=== PATIENT | female | born 1955 | race Caucasian/White ===

== ENCOUNTER 2018-12-16 01:44 | Emergency (ER) | payer OTHER ==
[~2018-12-16] VITALS: Ht 167.6 cm; Wt 68.0 kg
--- OUTSIDE RECORDS SUMMARY | ~2018-12-16 | XMS | Encounter Summary ---
Demographics + + + | Address | [address] | | | [place] [address] | + + + | Home Phone | | + + + | Preferred Language | Unknown | + + + | Marital Status | Unknown | + + + | Confucianist Affiliation | Unknown | + + + | Race | Unknown | + + + | Ethnic Group | Unknown | + + + Author + + + | Author | [facility] | + + + | Organization | [facility] | + + + | Address | Unknown | + + + | Phone | Unavailable | + + + Support + + +---------+ + | Name | Relationship | Address | Phone | + + +---------+ + | Charles Hart | ECON | Unknown | | + + +---------+ + Care Team Providers + +------+ + | Care Nuclear Unit Operator Name | Role | Phone | + +------+ + | Helena Hutton PA-C | PCP | | + +------+ + Encounter Details +--------+---------+ + + + | Date | Type | Department | Care Team | Description | +--------+---------+ + + + | 09/20/ | Office | [facility] | Tomás Hoff MD | Mild persistent | | 2019 | Visit | Pulmonology [address] | asthma without | | | | [address] | [place] [address] | complication | | | | [place], [place] | [phone] | (Primary Dx) | | | | [address] | | | | | | [phone] | | | +--------+---------+ + + + Social History + +-------+ +--------+------+ | Tobacco Use | Types | Packs/Day | Years | Date | | | | | Used | | + +-------+ +--------+------+ | Never Smoker | | | | | + +-------+ +--------+------+ + +---+---+---+ | Smokeless Tobacco: | | | | | Never Used | | | | + +---+---+---+ + + +---------+ + | Alcohol Use | Drinks/We | oz/Week | Comments | | | ek | | | + + +---------+ + | No | | | | + + +---------+ + + + + | Sex Assigned at | Date Recorded | | | | + + + | Not on file | | + + + as of this encounter Last Filed Vital Signs + + + + | Vital Sign | Reading | Time Taken | + + + + | Blood Pressure | 126/67 | 09/20/2018 10:54 AM PST | + + + + | Pulse | 57 | 09/20/2018 10:54 AM PST | + + + + | Temperature | 35.9 C (96.6 F) | 09/20/2018 10:54 AM PST | + + + + | Respiratory Rate | - | - | + + + + | Oxygen Saturation | 100% | 09/20/2018 10:54 AM PST | + + + + | Inhaled Oxygen | - | - | | Concentration | | | + + + + | Weight | 68.9 kg (152 lb) | 09/20/2018 10:54 AM PST | + + + + | Height | 170.2 cm (5' 7") | 09/20/2018 10:54 AM PST | + + + + | Body Mass Index | 23.81 | 09/20/2018 10:54 AM PST | + + + + in this encounter Progress Notes Tomás Hoff MD - 09/20/2018 11:00 AM PSTFormatting of this note may be different from jill beebe. Subjective: Patient ID: Ragini Hart is a 62 y.o. female is here for evaluation of asthma . HPI The following portions of the patient's history were reviewed and updated as appropriate: a llergies, current medications, past family history, past medical history, past social histor y, past surgical history and problem list. 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 She use s albuterol very rarely. She has been tested for allergens but the place where she lives in [place] she denies any significant allergies. She does get some hoarseness of voice at t he end of the day after working in the hair salon. She travels a lot to [place] and every time she travels to [place] she develops an exa cerbation. She has never been intubated but has had at least 4 episodes of exacerbation wilfrid ated with prednisone. She has never been intubated. Once exacerbation is over her requirem ent of albuterol decreases significantly. She was recently started on Singulair which has l ed to decreasing the frequency of exacerbations but she also believes this could be as a res ult of decreased amount of travel . She is a lifetime nonsmoker 09/2016 The patient is stable since her last visit. She has been compliant with the use of Singula ir. Her use of albuterol is minimal. 01/09/2017 The patient went to [facility] and as usual had an exacerbation. This time she had the pres criptions of the prednisone and she took them . Unfortunately she did not call our office an d self stopped in a week. Other than that he symptoms have been well controlled. She has bee n using singulair and zyrtec for allergies. She has been using her omerprazole with a good c ompliance. 04/10/2017 The patient has visited [place] since the last visit and had no exacerbation. She is onl y using his Singulair now. She has stopped using Advair. She denies any exacerbation. 02/05/2018 The patient has had 2 exacerbations in the last visit. Both of them were during her visit to [place]. Both of them were short and treated with prednisone. She has been compliant with the use of cetirizine and Singulair. 07/06/2018 The patient says that her symptoms were very well controlled until May when they had some construction going in their house.she started having worsening shortness of breath. She started using her albuterol more frequently and decided to use prednisone which she was giv en for emergency purposes. She never contacted our office. After 10 days of treatment she fe lt better . She developed similar symptoms and she started using prednisone again and contin ued till few days ago. She called our office for a refill of prednisone and I advised her to come in for evaluation. She says that although she had some shortness of breath and wheezin g it was never severe enough that she had to go to the hospital and prednisone controlled it well. INTERIM HISTORY 09/20/2018 The patient has been feeling much better with inhaled fluticasone. The construction in her house is finished. She has not needed any steroid treatment in the interim Review of Systems Constitutional: Negative. HENT: Negative. Eyes: Negative. Respiratory: Negative. Cardiovascular: Negative. Gastrointestinal: History of GERD on omeprazole and lifestyle modification Endocrine: Negative. Genitourinary: Negative. Musculoskeletal: Negative. Allergic/Immunologic: Negative. Neurological: Negative. Hematological: Negative. Psychiatric/Behavioral: Negative. History: Past Medical History Diagnosis Date Anemia Bronchitis, chronic (HCC) Cancer (HCC) Mild intermittent asthma without complication 09/08/2016 Pneumonia Past Surgical History Procedure Laterality Date SECTION HYSTERECTOMY Social History Main Topics Smoking status: Never Smoker Smokeless tobacco: None Alcohol Use: No Drug Use: No Sexual Activity: Not Asked History reviewed. No pertinent family history. Allergies: Allergies Allergen Reactions Codeine Other (See Comments) Pneumococcal Polysaccharide Vaccine Other (See Comments) Reaction unknown Sudafed [Pseudoephedrine] Other (See Comments) Unknown 30 years ago Morphine GI Distress Current Medications: Current Outpatient Prescriptions on File Prior to Visit Medication Sig Dispense Refill albuterol (PROVENTIL HFA;VENTOLIN HFA) 108 (90 Base) MCG/ACT inhaler Inhale 2 puffs int o the lungs as needed. 1 Inhaler 11 Calcium Carb-Cholecalciferol (CALCIUM-VITAMIN D) 600-400 MG-UNIT TABS Take 1 tablet by mouth daily. cetirizine (ZYRTEC) 10 MG tablet Take 10 mg by mouth daily. Cholecalciferol 5000 UNITS capsule Take 5,000 Units by mouth daily. estradiol (CLIMARA) 0.025 MG/24HR Place 1 patch onto the skin once a week. estrogens, conjugated, (PREMARIN) 0.[address] 0.625 mg vaginally twice a week . ipratropium-albuterol (DUO-NEB) 0.5-2.5 mg/3mL Take 3 mLs by nebulization as needed. 36 0 mL 11 montelukast (SINGULAIR) 10 MG tablet Take 1 tablet by mouth daily. 30 tablet 11 Forgan-3 Fatty Acids (SALMON OIL) 200 MG CAPS Take 1,000 mg by mouth 2 (two) times daily . omeprazole (PRILOSEC) 20 MG capsule Take 20 mg by mouth daily. traZODone (DESYREL) 150 MG tablet Take 75 mg by mouth nightly. [DISCONTINUED] Fluticasone Furoate (ARNUITY ELLIPTA) 200 MCG/ACT AEPB Inhale 1 puff int o the lungs daily. 30 each 11 No current facility-administered medications on file prior to visit. Objective: Physical Exam Vitals: 09/20/18 1054 BP: 126/67 Pulse: 57 Temp: 96.6 F (35.9 C) SpO2: 100% Vital signs reviewed. GENERAL: pleasant, cooperative, oriented, not in distress HEENT: pink conjunctiva, anicteric sclerae, moist oral mucosae and without any lesions, nor mal appearing nasal mucosae; no JVD; MALAMPATTI _2__; no thyromegaly; no cervicolymphadenopa neena CVS: PMI non displaced, NRRR, S1 and S2, no murmurs/gallops/rubs CHEST: Examination of the chest was unremarkable. There were no bony deformities, no asymme try, and no other abnormalities. LUNGS: Normal effort, Equal in expansion, resonant to percussion, clear and equal breath so unds, no wheezes/rales/rhonchi ABDOMEN: Flat abdomen, NABS, non-tender on palpation, Traube's space intact, liver span nor mal, no masses palpated EXTREMITIES: good distal pulses, no cyanosis, no edema, no clubbing, no nail abnormalities NEURO: awake and oriented, gait normal, no focal neurologic deficits Pulmonary function test 2014 FEV1/FVC 77 FEV1 2.76/105 FVC 3.6/107 Lung volumes TLC 5.94/111 RV/TLC 37 Diffusing capacity is 18.5/71 Impression normal pulmonary function test Pulmonary function test 08/01/2016 SPIROMETRY: 1. FEV-1/FVC is 0.78. 2. FEV-1 is 2.88L/105%. 3. FVC is 3.67L/104%. 4.There is no significant bronchodilator response. LUNG VOLUMES: 1. TLC is 5.31L/99%. 2. RV/TLC is 0.27. DIFFUSING CAPACITY: 1. Diffusing capacity is 80%. 2. DLCO/VA is 63%. INTERPRETATION: FEV1/FVC ratio, FEV1, and FVC are all within normal limits. There is no significant obstr uctive impairment. There is no significant bronchodilator response. Total lung capacit y is within normal limits. There is no significant restrictive impairment. Diffusing cap acity is within normal limits. Overall, this is a normal PFT. Assessment and Plan: 1. Mild persistent asthma without complication The patient is feeling much better. I will decrease the arnuity ellipta 100mcg 1 puff daily She will use albnuterol as needed. She will continue using his Singulair 10 mg daily. She will continue to use albuterol as needed. Thank you for allowing me to participate in your patient's care. We will review test result s that we have ordered with the patient once they become available. A return visit has been scheduled in 4 months. Tomás Hoff MD Pulmonary and Critical Care Medicine [address] , [place] [address] in this encounter Plan of Treatment +--------+---------+ + + + | Date | Type | Specialty | Care Team | Description | +--------+---------+ + + + | 12/27/ | Office | Pulmonology | Tomás Hoff MD | | | 2018 | Visit | | [address] | | | | | | [place] [address] | | | | | | [phone] | | | | | | | | +--------+---------+ + + + as of this encounter Visit Diagnoses + + | Diagnosis | + + | Mild persistent asthma without complication - Primary | + + | Unspecified asthma | + +
--- OUTSIDE RECORDS SUMMARY | ~2018-12-16 | XMS | Clinical Summary ---
Demographics + + + | Address | [address] | | | [place] [address] | + + + | Home Phone | | + + + | Preferred Language | Unknown | + + + | Marital Status | Unknown | + + + | Yarsanism Affiliation | Unknown | + + + | Race | Unknown | + + + | Ethnic Group | Unknown | + + + Author + + + | Author | [facility] | + + + | Organization | [facility] | + + + | Address | Unknown | + + + | Phone | Unavailable | + + + Support + + +---------+ + | Name | Relationship | Address | Phone | + + +---------+ + | Charles Hart | ECON | Unknown | | + + +---------+ + Care Team Providers + +------+ + | Care Supervisor [employer] Name | Role | Phone | + +------+ + | Helena Hutton PA-C | PP | | + +------+ + Allergies + + + + + + | Active Allergy | Reactions | Severity | Noted | Comments | | | | | Date | | + + + + + + | Codeine | Other (See Comments) | Medium | | | + + + + + + | Morphine | GI Distress | Low | 06/30/20 | | | | | | 16 | | + + + + + + | Pneumococcal | Other (See Comments) | Medium | 08/03/20 | Reaction unknown | | Polysaccharide | | | 15 | | | Vaccine | | | | | + + + + + + | Pseudoephedrine | Other (See Comments) | Medium | 06/30/20 | Unknown 30 years | | | | | 16 | ago | + + + + + + Current Medications + + + +---------+------+------+-------+ | Prescription | Sig. | Disp. | Refills | Star | End | Statu | | | | | | t | Date | s | | | | | | Date | | | + + + +---------+------+------+-------+ | Calcium | Take 1 tablet by | | | | | Activ | | Carb-Cholecalciferol | mouth daily. | | | | | e | | (CALCIUM-VITAMIN D) | | | | | | | | 600-400 MG-UNIT | | | | | | | | TABS | | | | | | | + + + +---------+------+------+-------+ | cetirizine | Take 10 mg by mouth | | | | | Activ | | (ZYRTEC) 10 MG | daily. | | | | | e | | tablet | | | | | | | + + + +---------+------+------+-------+ | Cholecalciferol | Take 5,000 Units by | | | | | Activ | | 5000 UNITS capsule | mouth daily. | | | | | e | + + + +---------+------+------+-------+ | estradiol | Place 1 patch onto | | | | | Activ | | (CLIMARA) 0.025 | the skin once a | | | | | e | | MG/24HR | week. | | | | | | + + + +---------+------+------+-------+ | estrogens, | Place 0.625 mg | | | | | Activ | | conjugated, | vaginally twice a | | | | | e | | (PREMARIN) 0.625 MG | week. | | | | | | | tablet | | | | | | | + + + +---------+------+------+-------+ | Fowler-3 Fatty | Take 1,000 mg by | | | | | Activ | | Acids (SALMON OIL) | mouth 2 (two) times | | | | | e | | 200 MG CAPS | daily. | | | | | | + + + +---------+------+------+-------+ | omeprazole | Take 20 mg by mouth | | | | | Activ | | (PRILOSEC) 20 MG | daily. | | | | | e | | capsule | | | | | | | + + + +---------+------+------+-------+ | traZODone | Take 75 mg by mouth | | | | | Activ | | (DESYREL) 150 MG | nightly. | | | | | e | | tablet | | | | | | | + + + +---------+------+------+-------+ | montelukast | Take 1 tablet by | 30 | 11 | 08/0 | | Activ | | (SINGULAIR) 10 MG | mouth daily. | tablet | | /20 | | e | | tablet | | | | 17 | | | + + + +---------+------+------+-------+ | albuterol | Inhale 2 puffs into | 1 | 11 | 01/0 | | Activ | | (PROVENTIL | the lungs as needed. | Inhaler | | 3/20 | | e | | HFA;VENTOLIN HFA) | | | | 18 | | | | 108 (90 Base) | | | | | | | | MCG/ACT | | | | | | | | inhalerIndications: | | | | | | | | Mild intermittent | | | | | | | | asthma without | | | | | | | | complication | | | | | | | + + + +---------+------+------+-------+ | | Take 3 mLs by | 360 mL | 11 | 01/0 | | Activ | | ipratropium-albutero | nebulization as | | | 3/20 | | e | | l (DUO-NEB) 0.5-2.5 | needed. | | | 18 | | | | mg/3mLIndications: | | | | | | | | Mild intermittent | | | | | | | | asthma without | | | | | | | | complication | | | | | | | + + + +---------+------+------+-------+ | fluticasone | Inhale 1 puff into | 30 each | 11 | 01/1 | | Activ | | furoate (ARNUITY | the lungs daily. | | | 7/20 | | e | | ELLIPTA) 100 | | | | 19 | | | | mcg/puff AEPB | | | | | | | + + + +---------+------+------+-------+ Active Problems + + + | Problem | Noted Date | + + + | Mild intermittent asthma without complication | 09/08/2016 | + + + Encounters +--------+---------+ + + + | Date | Type | Specialty | Care Team | Description | +--------+---------+ + + + | 09/20/ | Office | | Tmoás Hoff MD | Mild persistent | | 2019 | Visit | | | asthma without | | | | | | complication | | | | | | (Primary Dx) | +--------+---------+ + + + from Last 3 Months Immunizations + + + + | Name | Dates Previously Given | Next Due | + + + + | Pneumococcal | 08/04/2005 | | | Polysaccharide | | | | 23-valent | | | + + + + Social History + +-------+ [...] on file | | + + + Last Filed Vital Signs + + + [...] + + + | Respiratory Rate | 12 | 04/10/2017 11:22 AM PDT | + + + + | Oxygen [...] AM PST | + + + + Plan of Treatment +--------+---------+ + + + | Date | Type | Specialty | Care Team | Description | +--------+---------+ + + + | 12/27/ | Office | | Tomás Hoff MD | | | 2018 | Visit | | [address] | | | | | | [place] [address] | | | | | | [phone] | | | | | | | | +--------+---------+ + + + + + + + + | Health Maintenance | Due Date | Last Done | Comments | + + + + + | Vaccine: | | | | | Dtap/Tdap/Td (1 - | 4 | | | | Tdap) | | | | + + + + + | Cervical Cancer | | | | | Screening (Pap) | 5 | | | + + + + + | Breast Cancer | | | | | Screening | 5 | | | | (Mammogram) | | | | + + + + + | Colon Cancer | | | | | Screening | 5 | | | | (Colonoscopy) | | | | + + + + + | Vaccine: Zoster (1 | | | | | of 2) | 5 | | | + + + + + | Vaccine: Influenza | | | | | (Season Ended) | 9 | | | + + + + + | Vaccine: | Completed | 08/04/2005 | | | Pneumococcal 19-64 | | | | | (PPSV23 only) Medium | | | | | Risk | | | | + + + + + Results Not on filefrom Last 3 Months Insurance + +--------+ +------+-------+---------+ | Payer | Benefi | Subscriber | Type | Phone | Address | | | t Plan | ID | | | | | | / | | | | | | | Group | | | | | + +--------+ +------+-------+---------+ | /[employer] | YELLOW | [id number] | | | | | PLANS | [place] | | | | | + +--------+ +------+-------+---------+ + +--------+ +--------+ + + | Guarantor Name | Accoun | Relation to | Date | Phone | Billing Address | | | t Type | Patient | of | | | | | | | | | | + +--------+ +--------+ + + | RAGINI HART | Person | Self [birth year] Home: | [id number] | | | [place] | | 5 | [phone] [place] | | | [place] | | [phone] | + +--------+ +--------+ + +
--- OUTSIDE RECORDS SUMMARY | ~2018-12-16 | XMS | Clinical Summary ---
Demographics + + + | Address | [address] | | | [place] [address] | + + + | Home Phone | | + + + | Preferred Language | Unknown | + + + | Marital Status | | + + + | Worship Affiliation | Unknown | + + + | Race | Unknown | + + + | Ethnic Group | Unknown | + + + Author + + + | Author | [facility] | | | and [place] | + + + | Organization | [facility] | | | and [place] | + + + | Address | Unknown | + + + | Phone | Unavailable | + + + Support + + +---------+ + | Name | Relationship | Address | Phone | + + +---------+ + | Charles Hart | ECON | Unknown | | + + +---------+ + Care Team Providers + +------+ + | Care Branch Service Specialist Name | Role | Phone | + +------+ + | Helena Hutton PA-C | PP | | + +------+ + Allergies + + + + + + | Active Allergy | Reactions | Severity | Noted | Comments | | | | | Date | | + + + + + + | Metaproterenol | Other (See Comments) | | 08/03/20 | Reaction unknown | | | | | 15 | | + + + + + + | Morphine | Other (See Comments) | | 08/03/20 | Reaction unknown | | | | | 15 | | + + + + + + | Pneumococcal | Other (See Comments) | | 08/03/20 | Reaction unknown | | Polysaccharide | | | 15 | | | Vaccine | | | | | + + + + + + | Pseudoephedrine | Other (See Comments) | | 08/03/20 | Reaction unknown | | | | | 15 | | + + + + + + Medications + + + +---------+------+------+-------+ | Medication | Sig | Dispensed | Refills | Star | End | Statu | | | | | | t | Date | s | | | | | | Date | | | + + + +---------+------+------+-------+ | Calcium | Take 1 tablet by | | 0 | | | Activ | | Carb-Cholecalciferol | mouth Daily. | | | | | e | | (CALCIUM-VITAMIN D) | | | | | | | | 600-400 MG-UNIT | | | | | | | | TABS | | | | | | | + + + +---------+------+------+-------+ | cholecalciferol | Take 5,000 Units by | | 0 | | | Activ | | (VITAMIN D-3) 5000 | mouth Daily. | | | | | e | | units CAPS | | | | | | | + + + +---------+------+------+-------+ | estradiol | Place 1 patch onto | | 0 | | | Activ | | (CLIMARA) 0.025 | the skin Once a | | | | | e | | MG/24HR | week. | | | | | | + + + +---------+------+------+-------+ | OMEGA-3 FATTY | Take 1,000 mg by | | 0 | | | Activ | | ACIDS PO | mouth 3 times daily. | | | | | e | | | Take one capsule by | | | | | | | | mouth three times a | | | | | | | | day | | | | | | + + + +---------+------+------+-------+ | estrogens, | Place 0.625 mg | | 0 | | | Activ | | conjugated, | vaginally Twice a | | | | | e | | (PREMARIN) 0.625 mg | week. Insert 1 GM | | | | | | | tablet | into vagina twice | | | | | | | | weekly for vaginal | | | | | | | | dryness or | | | | | | | | irritation | | | | | | + + + +---------+------+------+-------+ | albuterol 90 | Inhale 2 puffs into | | 0 | | | Activ | | mcg/puff inhaler | the lungs every 6 | | | | | e | | | hours as needed for | | | | | | | | Wheezing or | | | | | | | | Shortness of Breath | | | | | | | | (PROVENTIL BRAND). | | | | | | + + + +---------+------+------+-------+ | trazodone | Take 75 mg by mouth | | 0 | | | Activ | | (DESYREL) 150 MG | nightly. | | | | | e | | tablet | | | | | | | + + + +---------+------+------+-------+ | | Inhale 1 puff into | 1 each | 11 | 12/0 | | Activ | | fluticasone-salmeter | the lungs 2 times | | | 1/20 | | e | | ol | daily. Rinse mouth | | | 15 | | | | (FLUTICASONE-SALMETE | out with use. | | | | | | | ROL) 500-50 mcg/puff | PHILLIP Gonzalez, | | | | | | | diskus inhaler | [facility] | | | | | | + + + +---------+------+------+-------+ | omeprazole | Take 20 mg by mouth | | 0 | | | Activ | | (PRILOSEC) 20 mg | every morning | | | | | e | | capsule | (before breakfast). | | | | | | + + + +---------+------+------+-------+ | cetirizine | Take 10 mg by mouth | | 0 | | | Activ | | (ZYRTEC) 10 mg | Daily. | | | | | e | | tablet | | | | | | | + + + +---------+------+------+-------+ | montelukast | Take 1 tablet by | 30 | 11 | 05/1 | | Activ | | (SINGULAIR) 10 mg | mouth Daily. | tablet | | 6/20 | | e | | tablet | Baltazar Malik | | | 16 | | | | | PHILLIP Hutton | | | | | | + + + +---------+------+------+-------+ | | Take 3 mLs by | 60 vial | 11 | 05/1 | | Activ | | albuterol-ipratropiu | nebulization every 4 | | | 6/20 | | e | | m (DUONEB) 2.5-0.5 | hours as needed. | | | 16 | | | | mg/3 mL SOLN | Baltazar Mckeon | | | | | | | | Bogladyset PA | | | | | | + + + +---------+------+------+-------+ Active Problems + + + | Problem | Noted Date | + + + | Hypovitaminosis D | 09/28/2015 | + + + + + | Overview: On 5000 units daily | + + + + + | Menopause | 07/07/2015 | + + + | Asthma | 07/07/2015 | + + + | Hypercholesteremia | 07/07/2015 | + + + | GERD (gastroesophageal reflux disease) | 07/07/2015 | + + + | H. pylori infection | 07/07/2015 | + + + | Dysphagia | 07/07/2015 | + + + | Palpitation | 07/07/2015 | + + + | Neuralgia | 07/07/2015 | + + + | Depression | 07/07/2015 | + + + | Environmental and seasonal allergies | | + + + + + | Overview: animal dander, trees, grasses, molds, tested by | | Ramon 2007 | + + + +---+ | Temporomandibular joint disorder | | + +---+ | Insomnia | | + +---+ | Polyp of colon | | + +---+ | Panic disorder without agoraphobia | | + +---+ + + | Overview: associated with breathing problems | + + Resolved Problems + + + + | Problem | Noted | Resolved | | | Date | Date | + + + + | Rectocele | 07/07/20 | | | | 15 | 5 | + + + + | Pneumonia | 07/07/20 | | | | 15 | 5 | + + + + | Bronchitis | 07/07/20 | | | | 15 | 5 | + + + + | Pharyngitis | 07/07/20 | | | | 15 | 5 | + + + + Immunizations + + + + | Name | Dates Previously Given | Next Due | + + + + | INFLUENZA, | 07/21/2015 | | | UNSPECIFIED | | | | FORMULATION | | | + + + + | PNEUMOCOCCAL | 08/04/2005 | | | POLYSACCHARIDE | | | | 23-VALENT (PPSV23) | | | + + + + Family History + + +------+ + | Medical History | Relation | Name | Comments | + + +------+ + | Kidney cancer | Brother | | | + + +------+ + | No known problems | Daughter | | | + + +------+ + | No known problems | Daughter | | | + + +------+ + | Allergies | Daughter | | | + + +------+ + | COPD | Father | | | + + +------+ + | Heart disease | Father | | | + + +------+ + | Allergies | Mother | | | + + +------+ + | Asthma | Mother | | | + + +------+ + | High blood pressure | Mother | | | + + +------+ + | High cholesterol | Mother | | | + + +------+ + | Stroke | Other | | aunt | + + +------+ + | High cholesterol | Sister | | | + + +------+ + | Hypertension | Sister | | | + + +------+ + + +------+ + + | Relation | Name | Status | Comments | + +------+ + + | Brother | | | respiratory failure related to quadriplegia | | | | (Age | | | | | 57) | | + +------+ + + | Daughter | | Alive | | + +------+ + + | Daughter | | Alive | | + +------+ + + | Daughter | | Alive | | + +------+ + + | Father | | | heart disease | | | | (Age | | | | | 80) | | + +------+ + + | Mother | | Alive | | + +------+ + + | Other | | | | + +------+ + + | Sister | | Alive | | + +------+ + + | Sister | | Alive | | + +------+ + + Social History + +-------+ +--------+------+ | Tobacco Use | Types | Packs/Day | Years | Date | | | | | Used | | + +-------+ +--------+------+ | Never Smoker | | | | | + +-------+ +--------+------+ + +---+---+---+ | Smokeless Tobacco: | | | | | Never Used | | | | + +---+---+---+ + + | Tobacco Cessation: Counseling Given: No | | Comments: her father smoked when she was a child | + + + + +---------+ + | Alcohol Use | Drinks/We | oz/Week | Comments | | | ek | | | + + +---------+ + | No | 0 | 0.0 | | | | Standard | | | | | drinks or | | | | | | | | | | equivalen | | | | | t | | | + + +---------+ + + + + | Sex Assigned at | Date Recorded | | | | + + + | Not on file | | + + + + + + + | Job Start Date | Occupation | Industry | + + + + | Not on file | Not on file | Not on file | + + + + + + + + | Travel History | Travel Start | Travel End | + + + + + + | No recent travel history available. | + + Last Filed Vital Signs + + + + | Vital Sign | Reading | Time Taken | + + + + | Blood Pressure | 124/80 | 01/18/2016 1250 PDT | + + + + | Pulse | 72 | 01/18/2016 1250 PDT | + + + + | Temperature | - | - | + + + + | Respiratory Rate | - | - | + + + + | Oxygen Saturation | 97% | 01/18/20161249 PDT | + + + + | Inhaled Oxygen | - | - | | Concentration | | | + + + + | Weight | 73.6 kg (162 lb 3.2 | 01/18/20161249 PDT | | | oz) | | + + + + | Height | 167.6 cm (5' 6") | 01/18/20161249 PDT | + + + + | Body Mass Index | 26.18 | 01/18/20161249 PDT | + + + + Plan of Treatment + + + + + | Health [...] + + | Vaccine: Influenza | | 07/21/2015 | | | (Season Ended) | 9 | | | + + + + + Results Not on filefrom Last 3 Months Insurance + +--------+ +--------+-------+---------+--------+ | Payer | Benefi | Subscriber | Effect | Phone | Address | Type | | | t Plan | ID | jamie | | | | | | / | | Dates | | | | | | Group | | | | | | + +--------+ +--------+-------+---------+--------+ | [facility] [facility] | [employer] | [id number] | 10/05/19 | | | Indemn | | SERVICE | YELLOW | | 12-Pre | | | ity | | | HAWK | | sent | | | | + +--------+ +--------+-------+---------+--------+ + +--------+ +--------+ + + | Guarantor Name | Accoun | Relation to | Date | Phone | Billing Address | | | t Type | Patient | of | | | | | | | | | | + +--------+ +--------+ + + | Ragini Hart | Person | Self [birth year] | [id number] | | | al/[place] | | 5 | [phone] | [place] | | | [place] | | | 1 (Home) | [address] | + +--------+ +--------+ + + Advance Directives Patient has advance care planning documents on file. For more information, please contact:[facility] [address]
--- OUTSIDE RECORDS SUMMARY | ~2018-12-16 | XMS | Clinical Summary ---
Demographics + + + | Address | [address] | | | [place] [address] | + + + | Home Phone | | + + + | Preferred Language | Unknown | + + + | Marital Status | Single | + + + | Confucianism Affiliation | CAT | + + + | Race | Unknown | + + + | Ethnic Group | Other Race | + + + Author + + + | Author | NON REVENUE LOCATIONS | + + + | Organization | NON REVENUE LOCATIONS | + + + | Address | Unknown | + + + | Phone | Unavailable | + + + Support + + +---------+ + | Name | Relationship | Address | Phone | + + +---------+ + | PRIMO VILLAGRAN | ECON | Unknown | | + + +---------+ + Care Team Providers + +------+ + | Care Cigar Head Holer Name | Role | Phone | + +------+ + PP | Unavailable | + +------+ + Source Comments PABLO is fully live on both [facility] and [facility] Allergies Not on File Current Medications Not on file Active Problems Not on file Social History + +-------+ +--------+------+ | Tobacco Use | Types | Packs/Day | Years | Date | | | | | Used | | + +-------+ +--------+------+ | Never Assessed | | | | | + +-------+ +--------+------+ + + + | Sex Assigned at | Date Recorded | | | | + + + | Not on file | | + + + Plan of Treatment + + + + + | Health Maintenance | Due Date | Last Done | Comments | + + + + + | Influenza (Flu) | | | | | vaccination (#1) | 8 | | | + + + + + Results Not on filefrom Last 3 Months Insurance + +--------+ +--------+-------+---------+ | Payer | Benefi | Subscriber | Type | Phone | Address | | | t Plan | ID | | | | | | / | | | | | | | Group | | | | | + +--------+ +--------+-------+---------+ | [facility] | [employer] | [phone] | Agency | | | | SERVICE | | | | | | | | HEALTH | | | | | | | | | | | | | | SERVIC | | | | | | | E | | | | | + +--------+ +--------+-------+---------+ + +--------+ +--------+ + + | Guarantor Name | Accoun | Relation to | Date | Phone | Billing Address | | | t Type | Patient | of | | | | | | | | | | + +--------+ +--------+ + + | KARSON BALL | Person | Self [birth year] | Home: | [id number] | | | al/Fam | | 5 | +1- | [place] [address] | | | perry | | | [phone] | | + +--------+ +--------+ + + | KARSON BALL | Agency | Self | [birth year] | Home: | [address] | | | | | 1956 | +- | [place] [address] | | | | | | [phone] | | + +--------+ +--------+ + +"
[~2018-12-16 01:44] MED LIST: ALBUTEROL2.5 MG/3 M INH; AMITIZA24 MCG PO; ANAPROX DS550 MG PO; BENADRYL25 MG PO; CALCIUM + VITA1 EACH PO; DOCUSATE SODIU100 MG PO; ESTRODIAL PATCH; IPRAT-ALBUT 0.5-3 ML INH; MUCINEX FAST-M1 EAC1 PO; MUCINEX600 MG PO; NORCO 5-325 TA1 EACH PO; NYQUIL D COLD295 ML PO; OMEGA 3 1,0001 EACH PO; PREDNISONE10 MG PO; PROMETHAZINE HC25 M1 PO; TRAMADOL-ACETA1 EACH PO; TRAZODONE HCL150 MG PO; TYLENOL EXTRA500 MG PO; VITAMIN D35000 UNIT PO; ZITHROMAX250 MG PO; ZOFRAN ODT4 MG PO
[2018-12-16] MEDS ORDERED: LEVAQUIN500 MG PO (04:03)
== END 2018-12-16 04:15 | disposition home or self-care (01) ==
LOC: ED 01:44
DX: R19.7 Diarrhea, unspecified (principal); J45.909 Unspecified asthma, uncomplicated; Z88.8 Allergy status to other drugs, medicaments and biological substances; Z88.5 Allergy status to narcotic agent; Z79.899 Other long term (current) drug therapy
CPT/HCPCS: 80053; 81001; 83690; 85025; 96361; 96374; 96375; 99284-25; J1170; J1956; J2405; J2550; J7030

== ENCOUNTER 2021-06-01 11:56 | Emergency (ER) | payer MEDICARE, OTHER ==
[~2021-06-01] VITALS: Ht 167.6 cm; Wt 68.0 kg
[~2021-06-01 11:56] MED LIST changes: +LEVAQUIN500 MG PO
[2021-06-01] MEDS ORDERED: SINGULAIR10 MG PO (15:43)
== END 2021-06-01 18:00 | disposition home or self-care (01) ==
LOC: ED 11:56
DX: U07.1 COVID-19 (principal); J45.909 Unspecified asthma, uncomplicated; G47.9 Sleep disorder, unspecified; Z88.5 Allergy status to narcotic agent; Z88.8 Allergy status to other drugs, medicaments and biological substances; Z79.899 Other long term (current) drug therapy
CPT/HCPCS: 99283-25; M0243; Q0244

== ENCOUNTER 2022-03-21 12:18 | Emergency (ER) | payer MEDICARE, OTHER ==
[~2022-03-21] VITALS: Ht 167.6 cm; Wt 63.5 kg
[~2022-03-21 12:18] MED LIST changes: +SINGULAIR10 MG PO
[2022-03-21] MEDS ORDERED: TAMIFLU75 MG PO (16:18)
[2022-03-21] MEDS ORDERED: PREDNISONE20 MG PO (16:18)
--- NOTE | 2022-03-22 12:14 | EKG ---
[facility] [address] [facility] [place], [place] [address] Signed Normal sinus rhythm Normal ECG No previous ECGs available Confirmed by PITO YOUSIF MD ([id number]) on 03/22/2022 12:13:55 PM Electronically Signed By: PITO YOUSIF MD 03/22/22 1214 PATIENT NAME: KARSON BALL Electrocardiogram DATE OF : 53 PHYSICIAN: PITO YOUSIF MD REPORT #: [id number] REPORT IS CONFIDENTIAL AND NOT TO BE RELEASED WITHOUT AUTHORIZATION
== END 2022-03-21 16:25 | disposition home or self-care (01) ==
LOC: ED 12:18
DX: J10.1 Influenza due to other identified influenza virus with other respiratory manifestations (principal); J45.909 Unspecified asthma, uncomplicated; Z20.822 Contact with and (suspected) exposure to COVID-19; Z88.8 Allergy status to other drugs, medicaments and biological substances; Z88.5 Allergy status to narcotic agent; Z79.899 Other long term (current) drug therapy
CPT/HCPCS: 71045; 87502; 93005; 93010; 99284-25; C9803; U0003

== ENCOUNTER 2022-11-04 08:50 | Day surgery (SDC) | payer MEDICARE, OTHER ==
[~2022-11-04] VITALS: Ht 167.6 cm; Wt 68.2 kg
--- NOTE | ~2022-11-04 | OR ---
[facility] [address] [place], [place] [address] Draft DATE OF OPERATION: 11/04/2022 SURGEON: Sandeep Mendez MD PREOPERATIVE DIAGNOSIS: History of polyps of colon in 2017 at [place]. POSTOPERATIVE DIAGNOSIS: Polyps x2, left transverse/left colon and sigmoid. PROCEDURE: Total colonoscopy to cecum with cold morcellation polypectomy x2. ANESTHESIA: Intravenous sedation, propofol infusion, Pravin Fabian CRNA INDICATIONS: This 66-year-old white woman is a patient of Dr. Montgomery at [facility]. She underwent colonoscopy in [place] by Dr. Cowan in 2017, which showed two polyps. She has issues of diarrhea alternating with constipation and occasional blood per rectum. She has no family history of colon cancer. She is admitted at this time to undergo colonoscopy. She understands the risk of bleeding, infection, and perforation. FINDINGS: The prep was adequate with irrigation. The colon was extremely redundant and long, but ultimately complete intubation to the cecum was accomplished. There were two small polyps, one in the left transverse colon and the other in the sigmoid. The sigmoid polyp was probably hyperplastic, the other adenomatous. There were no other findings. Specifically, no diverticular formation, colitis or cancer. DESCRIPTION OF PROCEDURE: The patient was brought to the endoscopy suite and placed in the lateral decubitus position, given intravenous sedation to the point of slurred speech and nystagmus. Digital rectal examination was normal. An Olympus video colonoscope was passed in the rectum and manipulated throughout the colon. The colon was exceedingly redundant. Various maneuvers were required including abdominal wall stabilization. Her prep was suboptimal with no solid stool, but a fair amount of bilious thick material requiring copious amounts of irrigation. Ultimately, the cecum was intubated. The ileocecal valve and appendiceal orifice were normal. The PATIENT NAME: KARSON BALL OPERATIVE REPORT DATE OF : 53 REPORT #: [id number] PHYSICIAN: SANDEEP MENDEZ MD PCP: SOCRATES MONTGOMERY MD REPORT IS CONFIDENTIAL AND NOT TO BE RELEASED WITHOUT AUTHORIZATION [facility] [address] [place], [place] [address] Draft scope was withdrawn showing a very small polyp ultimately in the left transverse colon area. This was excised with cold morcellation technique. Further withdrawal showed a small probably hyperplastic polyp of the sigmoid, which was excised. There were no diverticula. Withdrawal of scope to the rectum allowed for retroflexed view, which was normal. Scope was removed and the patient was taken to the recovery room in good condition. CONCLUDING DIAGNOSIS: Small polyps x2. PLAN: Recommend fiber supplement such as Metamucil on a daily basis. Would recommend repeat colonoscopy in 5 to 7 years if adenomatous polyp is identified. If not, 10 years would be sufficient. She will return to the ongoing care of Dr. Montgomery at [facility]. MD LAURA Hernández/CHERYL /[id number] cc: Socrates Montgomery MD Copies: SOCRATES MONTGOMERY MD ~ PATIENT NAME: KARSON BALL OPERATIVE REPORT DATE OF : 53 REPORT #: [id number] PHYSICIAN: SANDEEP MENDEZ MD PCP: SOCRATES MONTGOMERY MD REPORT IS CONFIDENTIAL AND NOT TO BE RELEASED WITHOUT AUTHORIZATION
[~2022-11-04 08:50] MED LIST changes: +BREO ELLIPTA I1 EACH INH; +CRANBERRY200 MG PO; +MACRODANTIN100 MG PO; +OMEPRAZOLE20 MG PO; +PREDNISONE20 MG PO; +PROBIOTIC1 EAC4 PO; +TAMIFLU75 MG PO; +XYZAL5 MG PO
--- NOTE | 2022-11-04 10:27 | NUR ---
PT RESTING IN BED. DENIES FURTHER NEEDS. CALL LIGHT WITHIN REACH.
--- NOTE | 2022-11-04 11:12 | NUR ---
PT RESTING IN BED. PT INFORMED IT WOULD BE AWHILE LONGER OF A WAIT. PT VERBALIZED UNDERSTANDING. PT REQUESTING NAYELY PAWS WARMER. PT DENIES FURTHER NEEDS AT THIS TIME. CALL LIGHT WITHIN REACH.
--- NOTE | 2022-11-04 14:35 | NUR ---
11/04/22 1435 Shannon Escobar 1430 PATIENT ARRIVES TO PACU RESTING WITH EYES CLOSED, DOES NOT RESPOND TO VERBAL STIMULI. RESP EVEN AND UNLABORED, ROOM AIR SATS >95%. 1434 PATIENT RESTING WITH EYES CLOSED, AWAKENS WITH VERBAL STIMULI, BACK TO SLEEP WHEN NOT STIMULATED. RESP EVEN AND UNLABORED, ROOM AIR SATS >95%.
--- NOTE | 2022-11-07 13:28 | PATH ---
[facility] [address] [place], [place] [address] Signed SPECIMEN(S): A TRANSVERSE COLON POLYP SPECIMEN(S): B LOW SIGMOID POLYPS SPECIMEN SOURCE: A. TRANSVERSE COLON POLYP B. LOW SIGMOID POLYPS CLINICAL HISTORY: Pre: History of colon polyp, alternating diarrhea and constipation. Post: Polyp x 2. FINAL PATHOLOGIC DIAGNOSIS: A. Transverse polyp, biopsy: - Hyperplastic polyp. B. Low sigmoid polyps, biopsies: - Hyperplastic polyps. AMB:mfr:C2NR MICROSCOPIC EXAMINATION: Histologic sections of all submitted blocks are examined by light microscopy. These findings, together with the gross examination, support the pathologic diagnosis. GROSS DESCRIPTION: A. The specimen, labeled and designated "Hart, transverse colon polyp," is received in formalin and consists of one kramer soft tissue fragment measuring 0.2 cm. Entirely submitted in (A1). B. The specimen, labeled and designated "Hart, low sigmoid polyps," is received in formalin and consists of two kramer soft tissue fragments, ranging from 0.2 to 0.3 cm. Entirely submitted in (B1). VB (under the direct supervision of a pathologist) The Gross Description was prepared using a voice recognition system. The report was reviewed for accuracy; however, sound-alike word errors, addition and/or deletions may occur. If there is any question about this report, please contact Client Services. PERFORMING LABORATORY: The technical component was performed by [facility], [address] [place] [id number] (CLIA# [id number]). Professional interpretation was performed by [facility], [facility], [address] [place] [id number] (CLIA#: [id number]). PATIENT NAME: KARSON HART PATHOLOGY DATE OF : 53 REPORT #: [id number] PHYSICIAN: [facility] PCP: SOCRATES NEGRON MD REPORT IS CONFIDENTIAL AND NOT TO BE RELEASED WITHOUT AUTHORIZATION [address], [place] [address] Signed Diagnostician: Renae Benites MD Pathologist Electronically Signed 11/07/2022 Copies: ~ PATIENT NAME: KARSON HART PATHOLOGY DATE OF : 53 REPORT #: [id number] PHYSICIAN: [facility] PCP: SOCRATES NEGRON MD REPORT IS CONFIDENTIAL AND NOT TO BE RELEASED WITHOUT AUTHORIZATION
== END 2022-11-04 15:15 | disposition home or self-care (01) ==
LOC: OPS 08:50 → DS 08:50 → OPS 10:00
PROVIDERS: ATTEND Surgery
PROC: 0DBL8ZZ Excision of Transverse Colon, Via Natural or Artificial Opening Endoscopic (ICD-10-PCS; 2022-11-04)
PROC: 0DBN8ZZ Excision of Sigmoid Colon, Via Natural or Artificial Opening Endoscopic (ICD-10-PCS; principal; 2022-11-04 10:00)
DX: K63.5 Polyp of colon (principal); K59.00 Constipation, unspecified; Z86.010 Personal history of colon polyps; Z90.711 Acquired absence of uterus with remaining cervical stump; K21.9 Gastro-esophageal reflux disease without esophagitis
CPT/HCPCS: J2704; J7121

== ENCOUNTER 2024-03-15 16:48 | Emergency (ER) | payer MEDICARE, OTHER ==
[~2024-03-15] VITALS: Ht 167.6 cm; Wt 75.4 kg
--- OUTSIDE RECORDS SUMMARY | 2024-03-15 16:49 | XMS ---
PreManage Notification: KARSON BALL Security [employer] Events No recent Security Events currently on file [facility] There are no care providers on record at this time. Mark has no Care Guidelines for this patient. Christy VISIT COUNT (12 MO.) 1 JORDYN Ochoa TOTAL 1 NOTE: Visits indicate total known visits. ED/UCC VISIT TRACKING (12 MO.) 03/15/2024 16:49 JORDYN Gomez [place] TYPE: Emergency COMPLAINT: - DIZZINESS/HEADACHE INPATIENT VISIT TRACKING (12 MO.) No inpatient visits to display in this time frame [email or web address]
[2024-03-15] MEDS ORDERED: NEURONTIN100 MG PO (18:45)
[2024-03-15] MEDS ORDERED: METOCLOPRAMIDE HCL 10 MG/2 ML SDV IV ONE (19:00)
[2024-03-15] MEDS ORDERED: ACETAMINOPHEN 325 MG TAB PO ONE (19:00)
[2024-03-15] MEDS ORDERED: diphenhydrAMINE HCL 50 MG/ML VIAL IV ONE (19:00)
[2024-03-15 19:27] LABS: BASOPHILS 0.6 % (0-2); HEMATOCRIT 40.9 % (35.0-50.0); HEMOGLOBIN 13.7 g/dL (12.0-18.0); LYMPHOCYTES 48.5 % (24-44); MCH 29.1 (27-36); MCHC 33.6 g/dl (30-36); MCV 86.5 fl (81-99); MONOCYTES 6.6 % (0-12); NEUTROPHILS 41.3 % (39-80); PLATELET COUNT 189 K/uL (140-440); RBC 4.73 M/ul (4.3-5.7); RDW 13.8 (10.5-15.0)
[2024-03-15 19:43] LABS: ALBUMIN 3.8 g/dL (3.4-5.0); ALBUMIN/GLOBULIN RATIO 1.03 (1.1-2.4); ANION GAP 12.7 (7-21); BILIRUBIN, TOTAL 0.4 ng/dL (0.2-1.0); BUN/CREATININE RATIO 21.62 (6.0-28.6); CALCIUM 8.7 mg/dL (8.5-10.1); CREATININE, SERUM 0.74 mg/dL (0.55-1.02); POTASSIUM 3.7 mmol/L (3.5-5.1); PROTEIN, TOTAL 7.5 g/dL (6.4-8.2)
[2024-03-15 20:50] VITALS: BP 147/66
--- NOTE | 2024-03-15 23:00 | EKG ---
[facility] [address] [facility] [place] [address] Signed Sinus bradycardia Otherwise normal ECG When compared with ECG of 31-OCT-2022 08:49, No significant change was found Confirmed by Blossom Vasquez MD () on 03/15/2024 11:00:12 PM Electronically Signed By: BLOSSOM VASQUEZ MD 03/15/24 2300 PATIENT NAME: KARSON BALL Electrocardiogram DATE OF : 53 PHYSICIAN: BLOSSOM VASQUEZ MD REPORT #: [id number] REPORT IS CONFIDENTIAL AND NOT TO BE RELEASED WITHOUT AUTHORIZATION
== END 2024-03-15 20:50 | disposition home or self-care (01) ==
LOC: ED 16:48
PROVIDERS: Emergency Medicine
DX: R51.9 Headache, unspecified (principal); J45.909 Unspecified asthma, uncomplicated; Z88.5 Allergy status to narcotic agent; Z88.8 Allergy status to other drugs, medicaments and biological substances; Z79.899 Other long term (current) drug therapy
CPT/HCPCS: 36415; 70496; 71045; 80053; 84484; 85025; 93005; 93010; A9270; J1200; J2765; Q9967